=== PATIENT | male | born 2000 | race Two or more races ===

== ENCOUNTER 2022-05-25 15:14 | Emergency (ER) | payer MEDICAID ==
[~2022-05-25] VITALS: Ht 152.4 cm; Wt 45.0 kg
[2022-05-25 15:58] VITALS: BP 113/73
[2022-05-25] MEDS ORDERED: IBUPROFEN 600MG TABLET PO ONE (19:00)
[2022-05-25] MEDS ORDERED: IBUP-2029 MT (20:13)
== END 2022-05-25 20:31 | disposition home or self-care (01) ==
LOC: ER 16:23
DX: S09.90XA Unspecified injury of head, initial encounter (principal); X58.XXXA Exposure to other specified factors, initial encounter; Y93.89 Activity, other specified; Y92.89 Other specified places as the place of occurrence of the external cause; Y99.8 Other external cause status
CPT/HCPCS: 99284